=== PATIENT | male | born 1950 | race Caucasian/White ===

== ENCOUNTER → 2020-04-26 | Outpatient (CLI) | payer MEDICARE, OTHER ==
[~2020-04-26] MED LIST: CELEBREX 200MG200 MG PO; CELEXA20 MG PO; CHANTIX1 MG PO; COREG 25MG TAB25 MG PO; DEXILANT60 MG PO; DICYCLOMINE HCL10 MG PO; ECOTRIN81 MG PO; FLOVENT DISKUS50 MCG INH; IMDUR ER TAB 6060 MG PO; LEVOCETIRIZINE D5 MG PO; LIPITOR TAB 2020 MG PO; NORVASC2.5 MG PO; PEPCID40 MG PO; PLAVIX 75 MG TA75 MG PO; PROTONIX40 MG PO; ROPINIROLE HCL1 MG PO; TYLENOL W/CODEIN1 E2 PO; VASCEPA1 GM PO; VASOTEC5 MG PO; WELLBUTRIN SR150 M1 PO; ZANTAC150 MG PO; ZETIA 10 MG TAB10 MG PO
== END ==
LOC: HEART 5 14:48
DX: Z00.00 Encounter for general adult medical examination without abnormal findings (principal); I25.119 Atherosclerotic heart disease of native coronary artery with unspecified angina pectoris; R06.00 Dyspnea, unspecified; I10 Essential (primary) hypertension; Z72.0 Tobacco use; F17.210 Nicotine dependence, cigarettes, uncomplicated
CPT/HCPCS: 94010

== ENCOUNTER → 2020-05-01 | Day surgery (SDC) | payer MEDICARE, OTHER | END | disposition home or self-care (01) | LOC: OR 06:30 | DX: D02.22 Carcinoma in situ of left bronchus and lung (principal); I25.119 Atherosclerotic heart disease of native coronary artery with unspecified angina pectoris; I10 Essential (primary) hypertension; F17.210 Nicotine dependence, cigarettes, uncomplicated; E78.5 Hyperlipidemia, unspecified; I25.2 Old myocardial infarction; M47.819 Spondylosis without myelopathy or radiculopathy, site unspecified; K21.9 Gastro-esophageal reflux disease without esophagitis; Z95.1 Presence of aortocoronary bypass graft; Z95.5 Presence of coronary angioplasty implant and graft; Z79.899 Other long term (current) drug therapy; Z80.51 Family history of malignant neoplasm of kidney; Z82.49 Family history of ischemic heart disease and other diseases of the circulatory system; Z83.3 Family history of diabetes mellitus | CPT/HCPCS: 76000; J2704; J7120 ==

== ENCOUNTER 2020-05-15 05:53 | Inpatient (IN) | payer MEDICARE, OTHER ==
[~2020-05-15] VITALS: Ht 165.1 cm; Wt 72.6 kg
[~2020-05-15 05:53] MED LIST changes: -DEXILANT60 MG PO; -WELLBUTRIN SR150 M1 PO
[2020-05-15] MEDS ORDERED: DEXILANT60 MG PO (16:41)
[2020-05-15] MEDS ORDERED: WELLBUTRIN SR150 M1 PO (16:42)
[2020-05-15 18:43] LABS: HEMOGLOBIN 13.5 gm/dl (14.0-17.5); RED BLOOD COUNT 4.29 M/UL (4.20-5.50); WHITE BLOOD COUNT 13.5 K/UL (4.5-11.0)
[2020-05-15 19:12] LABS: BUN/CREATININE RATIO 19 (0-10)
[2020-05-16 05:58] LABS: HEMOGLOBIN 13.3 gm/dl (14.0-17.5); RED BLOOD COUNT 4.29 M/UL (4.20-5.50); WHITE BLOOD COUNT 12.6 K/UL (4.5-11.0)
[2020-05-16 06:11] LABS: BUN/CREATININE RATIO 18 (0-10)
[2020-05-17 12:10] LABS: HEMOGLOBIN 12.9 gm/dl (14.0-17.5); RED BLOOD COUNT 4.03 M/UL (4.20-5.50); WHITE BLOOD COUNT 14.5 K/UL (4.5-11.0)
[2020-05-17 12:35] LABS: BUN/CREATININE RATIO 20 (0-10)
[2020-05-18 05:04] LABS: HEMOGLOBIN 11.6 gm/dl (14.0-17.5); RED BLOOD COUNT 3.62 M/UL (4.20-5.50); WHITE BLOOD COUNT 11.4 K/UL (4.5-11.0)
[2020-05-18 05:35] LABS: BUN/CREATININE RATIO 18 (0-10)
[2020-05-19 04:59] LABS: HEMOGLOBIN 11.5 gm/dl (14.0-17.5); RED BLOOD COUNT 3.66 M/UL (4.20-5.50)
[2020-05-19 05:41] LABS: BUN/CREATININE RATIO 19 (0-10)
[2020-05-20 03:47] LABS: BUN/CREATININE RATIO 18 (0-10)
== END 2020-05-21 12:13 | disposition home or self-care (01) | DRG 164 ==
LOC: OR 05:53 → CCU 16:43 → PROG CARE 05-19 17:44
PROVIDERS: Internal Medicine; ADMIT Surgery
PROC: 0BJL4ZZ Inspection of Left Lung, Percutaneous Endoscopic Approach (ICD-10-PCS; principal; 2020-05-15 11:45)
PROC: 07B74ZX Excision of Thorax Lymphatic, Percutaneous Endoscopic Approach, Diagnostic (ICD-10-PCS; principal; 2020-05-15 11:45)
PROC: 0BBG4ZZ Excision of Left Upper Lung Lobe, Percutaneous Endoscopic Approach (ICD-10-PCS; principal; 2020-05-15 11:45)
DX: C34.12 Malignant neoplasm of upper lobe, left bronchus or lung (principal); J98.11 Atelectasis; I10 Essential (primary) hypertension; E78.5 Hyperlipidemia, unspecified; K21.9 Gastro-esophageal reflux disease without esophagitis; F17.210 Nicotine dependence, cigarettes, uncomplicated; J30.9 Allergic rhinitis, unspecified; I25.10 Atherosclerotic heart disease of native coronary artery without angina pectoris; G25.81 Restless legs syndrome; I25.2 Old myocardial infarction; Z95.1 Presence of aortocoronary bypass graft; Z95.5 Presence of coronary angioplasty implant and graft; Z79.01 Long term (current) use of anticoagulants; Z79.899 Other long term (current) drug therapy
CPT/HCPCS: 36415; 71045; 80048; 82550; 82553; 84132; 84484; 85007; 85025; 85027; 85610; 85730; 86850; 86900; 86901; 86920; 88341; 88342; 97116-GP-CQ; 97162; J0690; J1100; J1170; J2250; J2270; J2405; J2704; J2710; J3010; J7040; J7050; J7120

== ENCOUNTER → 2020-06-04 | Outpatient (CLI) | payer MEDICARE ==
[~2020-06-04] MED LIST changes: +DEXILANT60 MG PO; +WELLBUTRIN SR150 M1 PO
== END ==
LOC: EXRD 10:23
DX: R91.8 Other nonspecific abnormal finding of lung field (principal)
CPT/HCPCS: 71046